=== PATIENT | male | born 1980 | race Caucasian/White ===

== ENCOUNTER → 2018-06-21 | Outpatient (CLI) | payer BC ==
--- NOTE | 2018-06-21 15:17 | ECHOF ---
Referral Reason:R07.9 Chest pain, I10 Hypertension MEASUREMENTS -------- HEIGHT: 177.8 cm WEIGHT: 88.5 kg BP: 130/85 IVSd: 1.2 cm (0.6 - 1.1) LVIDd: 4.7 cm (3.9 - 5.3) LVPWd: 1.2 cm (0.6 - 1.1) IVSs: 1.5 cm LVIDs: 3.1 cm LVPWs: 1.5 cm RVIDd: 3.1 cm (< 3.3) LAESV Index (A-L): 10.37 ml/m Ao Diam: 3.6 cm (2.0 - 3.7) LA Diam: 2.6 cm (2.7 - 3.8) AV Cusp: 1.8 cm (1.5 - 2.6) EPSS: 0.8 cm MV E Boyd: 0.72 m/s MV DecT: 356 ms MV A Boyd: 0.65 m/s MV E/A Ratio: 1.11 RAP: 5.00 mmHg RVSP: 22.74 mmHg MV EF SLOPE: 79.34 mm/s (70 - 150) MV EXCURSION: 15.62 mm (> 18.000) FINDINGS -------- Sinus rhythm. This was a technically good study. The left ventricular size is normal. There is mild concentric left ventricular hypertrophy. Overa ll left ventricular systolic function is normal with, an EF between 55 - 60 %. The right ventricle is normal in size and function. Normal LA size by volume 22+/-6 ml/m2. The right atrium is normal in size. The aortic valve is trileaflet, and appears structurally normal. No aortic stenosis or regurgitation. The mitral valve is normal. There is trace to mild mitral regurgitation. Trace tricuspid regurgitation present. Right ventricular systolic pressure is normal at < 35 mmHg. There is no evidence of pulmonary hypertension. Trace/mild (physiologic) pulmonic regurgitation. The aortic root size is normal. Normal inferior vena cava with normal inspiratory collapse consistent with estimated right atrial pre ssure of 5 mmHg. There is no pericardial effusion. CONCLUSIONS -------- 1. Sinus rhythm. 2. This was a technically good study. 3. The left ventricular size is normal. 4. There is mild concentric left ventricular hypertrophy. 5. Overall left ventricular systolic function is normal with, an EF between 55 - 60 %. 6. Normal LA size by volume 22+/-6 ml/m2. 7. The aortic valve is trileaflet, and appears structurally normal. No aortic stenosis or regurgitati on. 8. There is trace to mild mitral regurgitation. 9. Trace tricuspid regurgitation present. 10. Right ventricular systolic pressure is normal at < 35 mmHg. 11. There is no evidence of pulmonary hypertension. 12. Trace/mild (physiologic) pulmonic regurgitation. 13. The aortic root size is normal. 14. There is no pericardial effusion. ASSISTANT PROFESSOR OF DIETETICS: Eugenio Mccarty RDCS
--- NOTE | 2018-06-21 17:19 | P.PCN ---
Preoperative Diagnosis: Exercise stress test on Edin Falk History of hypertension Baseline heart rate 83 beats a minute, Baseline blood pressure 131/85 mmHg Patient/that twelve-lead ECG shows normal sinus rhythm normal cardiac intervals Patient exercised on a John protocol for 10 minutes He achieved a peak heart rate 161 beats a minute Normal blood pressure response There was no ECG is for ischemia An occasional PVC was noted Impression No ECG ohms for ischemia An occasional PVC noted Good exercise capacity
--- NOTE | 2018-06-23 10:19 | P.STRESS ---
- Stress Test Note Stress Test Results/Findings: Exam Performed: EH stress test Exam Date: 06/21/18 Reason for Exam: HTN Height: 5 ft 10 in Weight: 88.451 kg Protocol: VIVI Stage: 4 Duration of Exercise: 10:00 Resting Heart Rate: 83 Resting Blood Pressure: 131/100 Maximum Achieved Heart Rate: 161 Maximum Achieved Blood Pressure: 179/77 85% PMHR: 156 100% PMHR: 184 METS: 11.7 Technologist Comment: Stress Test Results/Findings: Exercise stress test on Edin Falk History of hypertension Baseline heart rate 83 beats a minute, Baseline blood pressure 131/85 mmHg Patient/that twelve-lead ECG shows normal sinus rhythm normal cardiac intervals Patient exercised on a Vivi protocol for 10 minutes He achieved a peak heart rate 161 beats a minute Normal blood pressure response There was no ECG is for ischemia An occasional PVC was noted Impression No ECG ohms for ischemia An occasional PVC noted Good exercise capacity
== END | disposition home or self-care (01) ==
LOC: RADNMMAIN 10:26
PROVIDERS: ATTEND Family Medicine
DX: I34.0 Nonrheumatic mitral (valve) insufficiency (principal); I10 Essential (primary) hypertension; R07.9 Chest pain, unspecified
CPT/HCPCS: 93017; 93306

== ENCOUNTER → 2024-07-31 | Outpatient (CLI) | payer BC ==
--- NOTE | 2024-07-31 09:33 | US ---
EXAMINATION TYPE: US abdomen complete DATE OF EXAM: 07/31/2024 COMPARISON: CT abdomen and pelvis 07/05/2024 CLINICAL INDICATION: Male, 44 years old with history of K85.90 ACUTE PANCREATITIS WITHOUT NECROSIS OR INFE; recent pancreatitis, abd pain ongoing for a month TECHNIQUE: Grayscale and color Doppler imaging of the abdomen was performed. FINDINGS: EXAM MEASUREMENTS: Liver Length: 17.1 cm Gallbladder Wall: 0.2 cm CBD: 0.5 cm, color Doppler imaging was utilized to isolate the common bile duct for measurement. Spleen: 11.3 cm Right Kidney: 10.9 x 4.0 x 5.5 cm Left Kidney: 12.9 x 4.8 x 5.0 cm Pancreas: wnl Liver: difficult to penetrate, possible focal fatty Gallbladder: wnl Evidence for sonographic Deluna's sign: no CBD: wnl Spleen: wnl Right Kidney: wnl, No hydronephrosis, calculi or masses seen Left Kidney: wnl, No hydronephrosis, calculi or masses seen Upper IVC: wnl Abd Aorta: wnl The liver is diffusely hyperechoic. Noncirrhotic morphology. No focal lesion. The intrahepatic portio n of the IVC and proximal abdominal aorta are within normal limits. There is no evidence of cholelit hiasis. Common bile duct is unremarkable. The visualized portions of the pancreas are homogenous. The spleen is unremarkable. Kidneys are symmetric and free of hydronephrosis. No renal lesions are seen. IMPRESSION: 1. No ultrasound evidence for acute process. 2. Hepatic steatosis. [facility], , 07/31/2024 9:30 AM
== END | disposition home or self-care (01) ==
LOC: RADUSWWP 08:55
PROVIDERS: ATTEND Emergency Medicine
DX: K76.0 Fatty (change of) liver, not elsewhere classified (principal); K85.90 Acute pancreatitis without necrosis or infection, unspecified
CPT/HCPCS: 76700